=== PATIENT | female | born 1970 | race Hispanic/Latino ===

== ENCOUNTER 2019-04-02 01:19 | Emergency (ER) | payer BC ==
[2019-04-02] MEDS ORDERED: SOLU-Medrol IM ONE (03:04)
[2019-04-02] MEDS ORDERED: TESSALON PERLES PO ONE (03:04)
[2019-04-02] MEDS ORDERED: DUONEB *Not for PRN Use IH ONE (03:04)
[2019-04-02] MEDS ORDERED: TORADOL IM ONE (03:04)
--- NOTE | 2019-04-02 03:36 | XRay Report ---
CHEST 2 VIEWS INDICATION / CLINICAL INFORMATION: cough. COMPARISON: None available. FINDINGS: SUPPORT DEVICES: None. HEART / MEDIASTINUM: No significant abnormality. LUNGS / PLEURA: No significant pulmonary or pleural abnormality. No pneumothorax. ADDITIONAL FINDINGS: No significant additional findings. IMPRESSION: 1. No acute findings. Signer Name: Piyush Trammell MD Signed: 04/02/2019 3:32 AM Workstation Name: [id number]
--- NOTE | 2019-04-02 04:01 | Emergency Department Report ---
- General Chief Complaint: Upper Respiratory Infection Stated Complaint: COUGH/CP Time Seen by Provider: 04/02/19 02:50 Source: patient Mode of arrival: Ambulatory Limitations: No Limitations - History of Present Illness Initial Comments: Patient is a 49-year-old white female with no past medical history except GERD who presents to the ED with complaint of acute onset persistent dry cough with pleuritic chest pain for the last 4 days. Patient states that she woke up 4 days ago and found milk that she had drank the night before on her pillow and thereafter began to have persistent cough. Patient states that the cough has been persistent and that in the last 2 days she developed severe pleuritic chest pain with cough. Patient says that she was evaluated at an urgent care clinic and prescribed oral cough syrup and albuterol inhaler after receiving a steroid injection in the same clinic 3 days ago. Patient states that in the last 24 hours the cough severity as worsened including chest pain. Patient denies fever, chills, nausea, vomiting, sore throat, nasal and sinus congestion, dizziness, headache, abdominal pain, diaphoresis or back pain and change in vision. MD Complaint: cough, sore throat, rhinorrhea, nasal congestion, sinus pain, other (pleuritic chest pain) -: Sudden, days(s) (4) Severity: severe Severity scale (0 -10): 7 Quality: sharp, aching, other (PLEURITIC) Consistency: constant Improves With: nothing Worsens With: nothing Associated Symptoms: denies other symptoms, cough, chest pain. denies: fever, chills, myalgias, diaphoresis, headache, rhinorrhea, nasal congestion, sore throat, stiff neck, shortness of breath, abdominal pain, nausea, vomiting, diarrhea, dysuria, rash, right sweats, weight loss, hoarseness - Related Data Previous Rx's Medication Instructions Recorded Last Taken Type Doxycycline Hyclate [Doxycycline 100 mg PO Q12HR #20 tab 04/02/19 Unknown Rx Hyclate TAB] Hydrocodone/Chlorphen P-Stirex 5 ml PO Q12H PRN #120 ml 04/02/19 Unknown Rx [Tussionex Pennkinetic Susp] Ibuprofen [Motrin] 600 mg PO Q8H PRN #20 tablet 04/02/19 Unknown Rx methylPREDNISolone [Medrol 4MG 4 mg PO DAILY #21 tab.ds.pk 04/02/19 Unknown Rx DOSEPAK (21 tabs)] Allergies Allergy/AdvReac Type Severity Reaction Status Date / Time promethazine [From Phenergan] Allergy Hives Verified 04/02/19 03:40 ED Review of Systems ROS: Stated complaint: COUGH/CP Other details as noted in HPI Constitutional: denies: chills, fever Eyes: denies: eye pain, eye discharge, vision change ENT: denies: ear pain, throat pain Respiratory: cough. denies: shortness of breath, wheezing Cardiovascular: chest pain (pleuritic). denies: palpitations Endocrine: no symptoms reported. denies: see HPI, excessive sweating, flushing, intolerance to heat, increased hunger, increased thirst, unexplained weight gain, unexplained weight loss Gastrointestinal: denies: abdominal pain, nausea, diarrhea Genitourinary: denies: urgency, dysuria, discharge Musculoskeletal: denies: back pain, joint swelling, arthralgia Skin: denies: rash, lesions Neurological: denies: headache, weakness, paresthesias Psychiatric: denies: anxiety, depression Hematological/Lymphatic: denies: easy bleeding, easy bruising ED Past Medical Hx - Past Medical History Previous Medical History?: No - Surgical History Past Surgical History?: Yes - Social History Smoking Status: Former Smoker Substance Use Type: None - Medications Home Medications: Home Medications Medication Instructions Recorded Confirmed Last Taken Type Doxycycline Hyclate [Doxycycline 100 mg PO Q12HR #20 tab 04/02/19 Unknown Rx Hyclate TAB] Hydrocodone/Chlorphen P-Stirex 5 ml PO Q12H PRN #120 ml 04/02/19 Unknown Rx [Tussionex Pennkinetic Susp] Ibuprofen [Motrin] 600 mg PO Q8H PRN #20 tablet 04/02/19 Unknown Rx methylPREDNISolone [Medrol 4MG 4 mg PO DAILY #21 tab.ds.pk 04/02/19 Unknown Rx DOSEPAK (21 tabs)] ED Physical Exam - General Limitations: No Limitations General appearance: alert, in no apparent distress - Head Head exam: Present: atraumatic, normocephalic, normal inspection - Eye Eye exam: Present: normal appearance, PERRL, EOMI. Absent: conjunctival injection, nystagmus - ENT ENT exam: Present: normal exam, normal orophraynx, mucous membranes moist, TM's normal bilaterally, normal external ear exam - Neck Neck exam: Present: normal inspection, full ROM. Absent: tenderness, meningismus, lymphadenopathy, thyromegaly - Respiratory Respiratory exam: Present: normal lung sounds bilaterally. Absent: respiratory distress, wheezes, rales, stridor, chest wall tenderness, accessory muscle use, decreased breath sounds - Cardiovascular Cardiovascular Exam: Present: regular rate, normal rhythm, normal heart sounds. Absent: systolic murmur, diastolic murmur, rubs, gallop - GI/Abdominal GI/Abdominal exam: Present: soft, normal bowel sounds. Absent: tenderness, guarding, rebound, rigid, hyperactive bowel sounds, hypoactive bowel sounds, organomegaly, mass - Rectal Rectal exam: Present: deferred - Extremities Exam Extremities exam: Present: normal inspection, full ROM, normal capillary refill - Back Exam Back exam: Present: normal inspection, full ROM. Absent: tenderness, CVA tenderness (R), CVA tenderness (L), muscle spasm, paraspinal tenderness, vertebral tenderness - Neurological Exam Neurological exam: Present: alert, oriented X3, CN II-XII intact, normal gait, reflexes normal - Psychiatric Psychiatric exam: Present: normal affect, normal mood - Skin Skin exam: Present: warm, dry, intact, normal color. Absent: rash ED Course Vital Signs 04/02/19 04/02/19 04/02/19 01:28 03:35 03:45 Temperature 97.8 F Pulse Rate 97 H Pulse Rate [ 80 89 Anterior] Respiratory 18 Rate Respiratory 19 19 Rate [Anterior] Blood Pressure 119/84 O2 Sat by Pulse 97 Oximetry - Reevaluation(s) Reevaluation #1: 04/02/19 04:05 This is a 49-year-old white female with a history of GERD who presents to the ED with complaint of persistent dry cough and pleuritic chest pain for days. Patient's vital signs are stable. Patient was treated in the ED with DuoNeb, Solu-Medrol, Toradol and chest x-ray shows no acute cardiopulmonary abnormalities. Patient was discharged home on cough syrup, Medrol Dosepak and pain medications and advised to follow-up with her primary care physician in 5-7 days for reevaluation, or return to the ED immediately if symptoms symptoms get worse. ED Medical Decision Making - Radiology Data Radiology results: report reviewed, image reviewed Chest x-ray shows no acute cardiopulmonary abnormalities - Medical Decision Making This is a 49-year-old white female with a history of GERD who presents to the ED with complaint of persistent dry cough and pleuritic chest pain for days. Patient's vital signs are stable. Patient was treated in the ED with DuoNeb, Solu-Medrol, Toradol and chest x-ray shows no acute cardiopulmonary abnormalities. Patient was discharged home on cough syrup, Medrol Dosepak and pain medications and advised to follow-up with her primary care physician in 5-7 days for reevaluation, or return to the ED immediately if symptoms symptoms get worse. - Differential Diagnosis acute bronchitis; pleuritic chest wall pain Critical care attestation.: If time is entered above; I have spent that time in minutes in the direct care of this critically ill patient, excluding procedure time. ED Disposition Clinical Impression: Acute costochondritis Acute bronchitis Qualifiers: Bronchitis organism: other organism Qualified Code(s): J20.8 - Acute bronchitis due to other specified organisms GERD (gastroesophageal reflux disease) Qualifiers: Esophagitis presence: without esophagitis Qualified Code(s): K21.9 - Gastro- esophageal reflux disease without esophagitis Disposition: DC-01 TO HOME OR SELFCARE Is pt being admited?: No Does the pt Need Aspirin: No Condition: Stable Instructions: Acute Bronchitis (ED), Costochondritis (ED), Gastroesophageal Reflux Disease (ED) Additional Instructions: Take medications with food, drink plenty of fluids and follow-up with your prima ry care physician in 5-7 days for reevaluation. Return to the ED immediately if symptoms get worse. Prescriptions: Doxycycline Hyclate [Doxycycline Hyclate TAB] 100 mg PO Q12HR #20 tab methylPREDNISolone [Medrol 4MG DOSEPAK (21 tabs)] 4 mg PO DAILY #21 tab.ds.pk Ibuprofen [Motrin] 600 mg PO Q8H PRN #20 tablet PRN Reason: Pain Hydrocodone/Chlorphen P-Stirex [Tussionex Pennkinetic Susp] 5 ml PO Q12H PRN #120 ml PRN Reason: Cough Referrals: [facility] [Outside] - 3-5 Days Time of Disposition: 04:08 Print Language: GERMAN
[2019-04-02 04:38] VITALS: BP 116/78
== END 2019-04-02 04:29 | disposition home or self-care (01) ==
LOC: ED 01:19
DX: M94.0 Chondrocostal junction syndrome [Tietze] (principal); K21.9 Gastro-esophageal reflux disease without esophagitis; J20.8 Acute bronchitis due to other specified organisms; Z87.891 Personal history of nicotine dependence; Z79.899 Other long term (current) drug therapy; Z88.8 Allergy status to other drugs, medicaments and biological substances
CPT/HCPCS: 71046; 94640; 96372; 99283; J1885; J2930; 94644